=== PATIENT | male | born 1955 | race Caucasian/White ===

== ENCOUNTER 2023-01-09 13:08 | Emergency (ER) | payer MEDICARE, SELFPAY ==
[2023-01-09 13:30] VITALS: BP 118/77; PULSE 75; RESP 14; TEMP 36.8; O2SAT 95
--- NOTE | 2023-01-09 13:48 | ED.SKABFB ---
HPI - Skin/Abscess/Foreign Bdy General Chief complaint: Skin/Abscess/Foreign Body Stated complaint: Right Foot Injury Source: patient, family and RN notes reviewed History of Present Illness HPI narrative: 67 yo M presents to urgent care with complaints of a possible skin infection to his right lower leg. Pt states he was picking up a bar stool on Dec 26 and the leg of it hit his right lower leg. Pt states the wound has not been healing and it has developed some redness around it. Pt reports tenderness around the wound. Denies any fevers, chills, vomiting, chest pain, or SOB. Pt has been applying Polysporin without improvement. Related Data Home Medications Medication Instructions Recorded Confirmed apixaban 5 mg tablet (Eliquis) mg 01/09/23 aspirin 81 mg tablet,delayed mg 01/09/23 release atorvastatin 80 mg tablet mg 01/09/23 ezetimibe 10 mg tablet mg 01/09/23 furosemide 20 mg tablet mg 01/09/23 metoprolol succinate 25 mg mg PO 01/09/23 tablet,extended release 24 hr sacubitril 24 mg-valsartan 26 mg tablet 01/09/23 tablet (Entresto) semaglutide 0.25 mg or 0.5 mg (2 mg subcut 01/09/23 mg/3 mL) subcutaneous pen injector (Ozempic) Allergies Allergy/AdvReac Type Severity Reaction Status Date / Time cephalexin Allergy Unknown PEELING OF Verified 01/09/23 13:41 HANDS AND FEET. Review of Systems Review of Systems: Pertinent positives and pertinent negatives per HPI. PMFSH Comments At the time of my signature, I reviewed and agree with the nursing past medical, surgical, social, and family history. There is no relevant family history pertinent to the patient complaint. Exam Narrative: GENERAL: This is a well-nourished, well-developed patient, in no apparent distress. HEAD: normocephalic, atraumatic. EYES: Sclera clear/white. Vision is grossly intact. EARS: External ears normal, auditory canals clear and without drainage. Hearing grossly intact. NOSE: External nose normal with no obvious nasal discharge, nares without redness, no rhinorrhea. THROAT: Mucous membranes moist, posterior pharynx clear. NECK: Neck supple, non-tender without lymphadenopathy, masses or thyromegaly. CARDIOVASCULAR: Regular rate RESPIRATORY: No respiratory distress SKIN: 2 cm x 2 cm circular lesion to right lower arellano with 3 cm area of erythema surrounding lesion. No drainage noted. NEURO: awake, alert, and oriented to person, place and time. There were no obvious focal neurologic abnormalities. EXTREMITIES: No clubbing, cyanosis, or edema. Course Course Level of Care: Express Care Visit Vital Signs Vital signs: Vital Signs Temperature 98.2 F 01/09/23 13:30 Pulse Rate 75 01/09/23 13:30 Respiratory Rate 14 01/09/23 13:30 Blood Pressure 118/77 01/09/23 13:30 Pulse Oximetry 95 01/09/23 13:30 Oxygen Delivery Room Air 01/09/23 13:30 Temperature 98.2 F 01/09/23 13:30 Pulse Rate 75 01/09/23 13:30 Respiratory Rate 14 01/09/23 13:30 Blood Pressure 118/77 01/09/23 13:30 Pulse Oximetry 95 01/09/23 13:30 Oxygen Delivery Room Air 01/09/23 13:30 reviewed MDM - Skin/Abscess/Foreign Bdy MDM Narrative Medical decision making narrative: Clean with soap and water only; Avoid using alcohol and peroxide. Elevate the affected area if possible Alternate Tylenol/ibuprofen for as needed for pain Acetaminophen(Tylenol) 650-1000mg every 4-6hours with max of 4000mg/day. Nonsteroidal anti-inflammatory agent (NSAIDs-ibuprofen): 400mg every 4-6hours with max 2400mg/day Take antibiotic until it's gone. Please schedule a follow up visit with your personal physician for further evaluation and treatment within 3-5days OR if your symptoms persist, change or worsen significantly before you can contact your personal physician then please, without delay, go to the emergency department for further evaluation. Differential Diagnosis Differential diagnosis: Likely cellulitis, insect
[2023-01-09] MEDS: TETANUS,DIPHTHERIA,AC PERTUSSIS ADULT (0.5 ML) BOOSTRIX IM (14:08)
== END 2023-01-09 14:13 | disposition home or self-care (01) ==
PROVIDERS: Emergency Provider Nurse Practitioner Family; PCP Family Medicine
DX: L03.115 Cellulitis of right lower limb (principal); I25.2 Old myocardial infarction; Z86.73 Personal history of transient ischemic attack (TIA), and cerebral infarction without residual deficits; Z23 Encounter for immunization
CPT/HCPCS: 90471; 90715; 99213; G0463

== ENCOUNTER 2025-05-07 12:54 | Emergency (ER) | payer MEDICARE, SELFPAY ==
[2025-05-07 13:06] VITALS: BP 136/80; PULSE 60; RESP 16; TEMP 36.4; O2SAT 95
--- NOTE | 2025-05-07 13:28 | ED_ITS ---
HPI - Skin/Abscess/Foreign Bdy General Chief complaint: Skin/Abscess/Foreign Body Stated complaint: rash on back Time Seen by Provider: 05/07/25 13:28 Source: patient, RN notes reviewed and old records reviewed Mode of arrival: ambulatory Limitations: no limitations History of Present Illness HPI narrative: 69 year old male presents to [facility] care with complaints of having rash to his legs last week that was itchy that has now resolved but has stated rash to his mid lower back which patient reports is itchy. Patient denies any new lotion, ointments, foods, medication or any new soaps used for bathing or with laundry. No redness or rash noted on back skin is dry and flaky with itching reported.. MD complaint: rash Onset (ago): day(s) (2) Severity: mild Quality: pruritic Treatments prior to arrival: none Related Data Home Medications ?Medication ?Instructions ?Recorded ?Confirmed ?Last Taken ?Type apixaban 5 mg tablet (Eliquis) mg 01/09/23 Unknown Hi story aspirin 81 mg tablet,delayed mg 01/09/23 Unknown Hist ory release atorvastatin 80 mg tablet mg 01/09/23 Unknown History ezetimibe 10 mg tablet mg 01/09/23 Unknown History furosemide 20 mg tablet mg 01/09/23 Unknown History metoprolol succinate 25 mg mg PO 01/09/23 Unknown His tory tablet,extended release 24 hr sacubitril 24 mg-valsartan 26 mg tablet 01/09/23 Unkn own History tablet (Entresto) Allergies Allergy/AdvReac Type Severity Reaction Status Date / Time cephalexin Allergy Unknown PEELING OF Verified 05/07/25 13:06 HANDS AND FEET. acetaminophen (From Vicodin) Allergy Unknown Verified 05/07/25 13:06 hydrocodone (From Vicodin) Allergy Unknown Verified 05/07/25 13:06 Review of Systems Review of Systems: CONSTITUTIONAL: Denies fever, chills, or sweats. CARDIOVASCULAR: Denies chest pain, palpitations, or edema. RESPIRATORY: Denies cough or dyspnea. SKIN: Reports dry skin rash which is itchy to his lower mid back MUSCULOSKELETAL: Denies joint pain or myalgia. NEUROLOGIC: Denies headache, numbness, or weakness. All systems reviewed & are unremarkable except as noted in HPI and below [facility] Past Medical History Medical History (Updated 05/09/25 @ 11:58 by Dianna Roberts APRN) Hx of residential use of blood thinners Asthma Elevated serum cholesterol CHF (congestive heart failure) Myocardial infarction CVA (cerebral vascular accident) Surgical History Surgical History (Updated 05/09/25 @ 11:57 by Dianna Roberts APRN) H/O repair of left rotator cuff H/O Spinal surgery Corneal transplant status H/O inguinal hernia repair Hx of appendectomy AICD (automatic cardioverter/defibrillator) present Social History Social History (Updated 05/09/25 @ 11:54 by Dianna Roberts APRN) Smoking status: Unknown if ever smoked Alcohol intake: current Alcohol use details: rare social Substance use type: does not use Living arrangements: with family Gender identity (if verbalized by the patient): Male Comments At time of signature, agree with nursing past medical, surgical, social and family history. There is no relevant family history pertinent to the presenting complaint Exam Narrative: GENERAL: Well-appearing, well-nourished, and in no acute distress. HEAD: Normocephalic, atraumatic. EYES: PERRLA, conjunctivae clear, and EOMI. ENT: Mucous membranes moist. Oropharynx without edema, erythema or lesions. NECK: Supple. No lymphadenopathy CHEST: Clear to auscultation. No respiratory distress.SAO2 95% on room air HEART: Regular rate and rhythm. SKIN: Warm, dry.? Patches of dry flaky skin to the lower mid pack with itching no pustules or papules noted NEURO:? Alert and oriented x3. PSYCH: Normal mood and affect Course Course Level of Care: Express Care Visit Vital Signs Vital signs: Vital Signs Temperature 36.4 C L 05/07/25 13:06 Pulse Rate 60 05/07/25 13:06 Respiratory Rate 16 05/07/25 13:06 Blood Pressure 136/80 05/07/25 13:06 Pulse Oximetry 95 05/07/25 13:06 Oxygen Delivery Room Air 05/07/25 13:06 Temperature 36.4 C L 05/07/25 13:06 Pulse Rate 60 05/07/25 13:06 Respiratory Rate 16 05/07/25 13:06 Blood Pressure 136/80 05/07/25 13:06 Pulse Oximetry 95 05/07/25 13:06 Oxygen Delivery Room Air 05/07/25 13:06 MDM MDM Narrative Medical decision making narrative: Patient is nontoxic in appearance will treat with triamcinolone ointment for itching and irritation. Recommend us of OTC lotions such as Aquaphor or Eucerin ointment after bathing and as needed to hydrate skin. Encouraged to drink adequate fluids for hydration Anticipatory guidance and reasons to seek care in ED reviewed with understanding voiced. Differential Diagnosis Differential Diagnosis: Differential diagnostic considerations for skin/abscess/foreign body issues include abscess of skin or subcutaneous tissue, viral exanthem, dermatophytosis, urticaria, herpes zoster, allergic reaction to drug, cellulitis, eczema, insect bites, impetigo, contact dermatitis, vasculitis. Critical Care Time Critical Care Time Critical Care Time: No Discharge Plan Discharge Clinical Impression: Contact dermatitis Qualifiers: Contact dermatitis type: unspecified Contact dermatitis trigger: unspecified trigger Qualified Code(s): L25.9 - Unspecified contact dermatitis, unspecified cause Patient Disposition: Home Condition: Stable Instructions: Contact Dermatitis (ED) Additional Instructions: apply triamcinolone ointment to back up to 2 times daily never apply to face watch for any infection--redness, swelling, drainage Tylenol or Ibuprofen for any fever or pain follow up with PCP in 7-10 days for a wound check recheck if develop fever, chills, increasing symptom Go to the ER if your symptoms become worse of if ANY new symptoms develop Recommend Eucerin or Aquaphor lotion to skin daily and drink plenty of water daily to maintain hydration If your symptoms persist, change or worsen significantly before you can contact your personal physician then please, without delay, go to the emergency department for further evaluation. Follow-up with PCP in 7-10 days or sooner if needed Follow up with PCP soon in regards to your blood pressure which is elevated above threshold for referral. Blood pressure above 120/80 may indicate pre-hypertension.136/80 Patient Language: [place] Prescriptions: New triamcinolone acetonide 0.1 % ointment 1 applic topical BID Qty: 80 0RF Rx Instructions: apply to back twice daily never apply this to the face No Action atorvastatin 80 mg tablet aspirin 81 mg tablet,delayed release (DR/EC) furosemide 20 mg tablet metoprolol succinate 25 mg tablet extended release 24 hr PO ezetimibe 10 mg tablet Eliquis 5 mg tablet Entresto 24-26 mg tablet Follow-up/Referrals: Harms,Geronimo Esqueda M.D. [Primary Care Provider] Time of Disposition: 13:36 Quality [place] Coma Scale Eyes: Open Verbal: Oriented and Alert Motor: Follows Commands [place] Coma Total Score: 15
== END 2025-05-07 13:44 | disposition home or self-care (01) ==
PROVIDERS: Emergency Provider Registered Nurse; PCP Family Medicine
DX: L25.9 Unspecified contact dermatitis, unspecified cause (principal); I50.9 Heart failure, unspecified; I25.2 Old myocardial infarction; J45.909 Unspecified asthma, uncomplicated; Z95.810 Presence of automatic (implantable) cardiac defibrillator; Z94.7 Corneal transplant status; E78.00 Pure hypercholesterolemia, unspecified; Z86.73 Personal history of transient ischemic attack (TIA), and cerebral infarction without residual deficits; Z79.01 Long term (current) use of anticoagulants; Z79.82 Long term (current) use of aspirin
CPT/HCPCS: 99211; G0463